=== PATIENT | female | born 1975 | race Caucasian/White ===

== ENCOUNTER 2018-11-02 23:20 | Emergency (ER) | payer OTHER ==
[~2018-11-02] VITALS: Ht 160 cm; Wt 75.8 kg
[2018-11-03 03:27] VITALS: BP 117/90
== END 2018-11-03 03:27 | disposition home or self-care (01) ==
LOC: ED 23:20
DX: R51 Headache (principal); S09.8XXA Other specified injuries of head, initial encounter; W22.03XA Walked into furniture, initial encounter; Y93.89 Activity, other specified; Y92.89 Other specified places as the place of occurrence of the external cause; Y99.8 Other external cause status